=== PATIENT | female | born 1975 | race Hispanic/Latino ===

== ENCOUNTER 2017-12-01 08:47 | Emergency (ER) | payer MEDICARE ==
[~2017-12-01 08:47] MED LIST: ACET-2743 PO
[2017-12-01] MEDS ORDERED: ONDANSETRON HCL 4 MG/2 ML VIAL ONE ×2 (09:05→09:48)
[2017-12-01 09:15] LABS: EOSINOPHILS % (AUTO) 1.9 % (0.0-8.0); HEMATOCRIT 41.7 % (36-48); LYMPHOCYTES % (AUTO) 28.2 % (21.0-51.0); MEAN CORPUSCULAR HEMOGLOBIN 29.7 pg (27.0-33.0); MEAN CORPUSCULAR HGB CONC 34.5 g/dL (32.0-36.0); MEAN CORPUSCULAR VOLUME 86.3 fL (79-99); MONOCYTES % (AUTO) 5.2 % (3.0-13.0); NEUTROPHILS % (AUTO) 63.7 % (40.0-77.0); PLATELET COUNT (AUTO) 361 K/uL (130-400); RED BLOOD CELL COUNT(AUTO) 4.83 MIL/uL (4.00-5.50); WHITE BLOOD COUNT (AUTO) 9.3 K/uL (4.8-10.8)
[2017-12-01] MEDS ORDERED: SODIUM CHLORIDE 0.9% 1000ML 1,000 ML IV ONE (09:22)
[2017-12-01 09:24] LABS: POTASSIUM 3.6 mmol/L (3.5-5.1)
[2017-12-01 09:28] LABS: ALBUMIN 3.4 g/dL (3.5-5.0); BILIRUBIN,TOTAL 0.3 mg/dL (0.2-1.0); TOTAL PROTEIN, SERUM 7.8 g/dL (6.0-8.3)
[2017-12-01] MEDS ORDERED: KETOROLAC TROMETHAMINE 30MG/ML ONE (09:44)
[2017-12-01 10:12] LABS: APPEARANCE,URINE Clear (CLEAR); BILIRUBIN,URINE Negative (NEGATIVE); COLOR,URINE Yellow (YELLOW); GLUCOSE, URINE (UA) Negative (NEGATIVE); KETONES,URINE Trace mg/dL (NEGATIVE); LEUKOCYTE ESTERASE ,URINE Trace (NEGATIVE); NITRATE,URINE Negative (NEGATIVE); OCCULT BLOOD,URINE Negative (NEGATIVE); PROTEIN,URINE Negative (NEGATIVE); UROBILINOGEN,URINE 0.2 mg/dL (0.2-1.0)
[2017-12-01 10:20] LABS: HCG,QUAL RESULT NEGATIVE (NEGATIVE)
[2017-12-01 10:24] LABS: AMPHET/METH SCREEN,URINE NEGATIVE (NEGATIVE); BARBITURATE SCREEN, URINE NEGATIVE (NEGATIVE); BENZODIAZEPINES SCREEN,URINE NEGATIVE (NEGATIVE); CANNABINOID SCREEN,URINE NEGATIVE (NEGATIVE); COCAINE SCREEN,URINE NEGATIVE (NEGATIVE); OPIATE SCREEN,URINE NEGATIVE (NEGATIVE); PHENCYCLIDINE SCREEN,URINE NEGATIVE (NEGATIVE)
[2017-12-01 10:32] LABS: BACTERIA,URINE Few /HPF (None Seen); RBC,URINE 0-1 /HPF (0-1)
[2017-12-01 10:33] LABS: WBC,URINE 0-1 /HPF (0-1)
== END 2017-12-01 11:48 | disposition home or self-care (01) ==
LOC: EDH 08:47
DX: K52.9 Noninfective gastroenteritis and colitis, unspecified (principal); Z88.6 Allergy status to analgesic agent; Z90.49 Acquired absence of other specified parts of digestive tract; Z98.890 Other specified postprocedural states
CPT/HCPCS: 36415; 74176; 80053; 80305; 81001; 81025; 83690; 85025; 96361; 96374; 96375; 96376; 99285; J1885; J2405 ×2; J7030

== ENCOUNTER 2018-01-03 09:58 | Emergency (ER) | payer MEDICARE ==
[2018-01-03] MEDS ORDERED: DiphenhydrAMINE HCL 50 MG/ML VIAL ONE (10:43)
[2018-01-03] MEDS ORDERED: FAMOTIDINE/PF 20 MG/2 ML VIAL IV ONE (10:44)
[2018-01-03] MEDS ORDERED: SODIUM CHLORIDE 0.9% 1000ML 1,000 ML IV ONE (10:44)
[2018-01-03] MEDS ORDERED: PROMETHAZINE HCL 25 MG/ML 1ML AMPULE IM ONE (10:44)
[2018-01-03 11:15] LABS: BASOPHILS % (AUTO) 0.2 % (0.0-5.0); HEMATOCRIT 44.3 % (36-48); LYMPHOCYTES % (AUTO) 11.7 % (21.0-51.0); MEAN CORPUSCULAR HEMOGLOBIN 29.2 pg (27.0-33.0); MEAN CORPUSCULAR HGB CONC 33.4 g/dL (32.0-36.0); MEAN CORPUSCULAR VOLUME 87.5 fL (79-99); MONOCYTES % (AUTO) 3.7 % (3.0-13.0); NEUTROPHILS % (AUTO) 83.4 % (40.0-77.0); PLATELET COUNT (AUTO) 375 K/uL (130-400); RED BLOOD CELL COUNT(AUTO) 5.07 MIL/uL (4.00-5.50); WHITE BLOOD COUNT (AUTO) 11.5 K/uL (4.8-10.8)
[2018-01-03 11:22] LABS: APPEARANCE,URINE Clear (CLEAR); BILIRUBIN,URINE Negative (NEGATIVE); COLOR,URINE Yellow (YELLOW); GLUCOSE, URINE (UA) Negative (NEGATIVE); KETONES,URINE Negative (NEGATIVE); LEUKOCYTE ESTERASE ,URINE Negative (NEGATIVE); NITRATE,URINE Negative (NEGATIVE); OCCULT BLOOD,URINE Moderate (NEGATIVE); PROTEIN,URINE Negative (NEGATIVE); UROBILINOGEN,URINE 0.2 mg/dL (0.2-1.0)
[2018-01-03 11:27] LABS: CREATININE 0.9 mg/dL (0.5-1.5); POTASSIUM 4.2 mmol/L (3.5-5.1)
[2018-01-03 11:29] LABS: ALBUMIN 3.5 g/dL (3.5-5.0); BILIRUBIN,TOTAL 0.2 mg/dL (0.2-1.0); TOTAL PROTEIN, SERUM 7.8 g/dL (6.0-8.3)
[2018-01-03 11:31] LABS: AMPHET/METH SCREEN,URINE NEGATIVE (NEGATIVE); BARBITURATE SCREEN, URINE NEGATIVE (NEGATIVE); BENZODIAZEPINES SCREEN,URINE NEGATIVE (NEGATIVE); CANNABINOID SCREEN,URINE NEGATIVE (NEGATIVE); COCAINE SCREEN,URINE NEGATIVE (NEGATIVE); OPIATE SCREEN,URINE NEGATIVE (NEGATIVE); PHENCYCLIDINE SCREEN,URINE NEGATIVE (NEGATIVE)
[2018-01-03 11:33] LABS: BACTERIA,URINE Rare /HPF (None Seen); SQUAMOUS EPITHELIAL CELL,UR Rare /HPF (0-2); WBC,URINE 0-1 /HPF (0-1)
== END 2018-01-03 11:58 | disposition home or self-care (01) ==
LOC: EDH 09:58
DX: K52.89 Other specified noninfective gastroenteritis and colitis (principal); Z88.6 Allergy status to analgesic agent; Z90.49 Acquired absence of other specified parts of digestive tract; Z79.899 Other long term (current) drug therapy; Z98.890 Other specified postprocedural states
CPT/HCPCS: 36415; 80053; 80305; 81001; 83690; 85025; 96361; 96374; 96375; 99284; J1200; J2550; J3490; J7030; 96365

== ENCOUNTER 2018-12-15 12:59 | Emergency (ER) | payer MEDICARE ==
[2018-12-15 13:37] LABS: BASOPHILS % (AUTO) 0.4 % (0.0-5.0); EOSINOPHILS % (AUTO) 1.8 % (0.0-8.0); HEMATOCRIT 36.4 % (36-48); LYMPHOCYTES % (AUTO) 26.5 % (21.0-51.0); MEAN CORPUSCULAR HEMOGLOBIN 27.8 pg (27.0-33.0); MEAN CORPUSCULAR HGB CONC 33.2 g/dL (32.0-36.0); MEAN CORPUSCULAR VOLUME 83.9 fL (79-99); NEUTROPHILS % (AUTO) 65.3 % (40.0-77.0); PLATELET COUNT (AUTO) 372 K/uL (130-400); RED BLOOD CELL COUNT(AUTO) 4.34 MIL/uL (4.00-5.50); RED CELL DISTRIBUTION WIDTH 14.5 % (11.0-15.5); WHITE BLOOD COUNT (AUTO) 7.5 K/uL (4.8-10.8)
== END 2018-12-15 14:40 | disposition home or self-care (01) ==
LOC: EDH 12:59
DX: N93.8 Other specified abnormal uterine and vaginal bleeding (principal); Z88.5 Allergy status to narcotic agent
CPT/HCPCS: 36415; 81025; 85025

== ENCOUNTER 2019-04-14 14:54 | Emergency (ER) | payer MEDICARE ==
[2019-04-14 15:24] LABS: BASOPHILS % (AUTO) 0.2 % (0.0-5.0); EOSINOPHILS % (AUTO) 2.8 % (0.0-8.0); HEMATOCRIT 33.4 % (36-48); LYMPHOCYTES % (AUTO) 23.8 % (21.0-51.0); MEAN CORPUSCULAR HGB CONC 31.4 g/dL (32.0-36.0); MEAN CORPUSCULAR VOLUME 76.3 fL (79-99); NEUTROPHILS % (AUTO) 65.9 % (40.0-77.0); PLATELET COUNT (AUTO) 419 K/uL (130-400); RED BLOOD CELL COUNT(AUTO) 4.38 MIL/uL (4.00-5.50); RED CELL DISTRIBUTION WIDTH 17.2 % (11.0-15.5); WHITE BLOOD COUNT (AUTO) 9.3 K/uL (4.8-10.8)
[2019-04-14 15:41] LABS: INR 0.94 (0.85-1.15); PROTHROMBIN TIME 9.9 SEC (9.6-11.6)
[2019-04-14 15:42] LABS: CREATININE 0.9 mg/dL (0.5-1.5); POTASSIUM 3.8 mmol/L (3.5-5.1)
[2019-04-14 15:46] LABS: ALBUMIN 3.5 g/dL (3.5-5.0); BILIRUBIN,TOTAL 0.2 mg/dL (0.2-1.0); TOTAL PROTEIN, SERUM 7.5 g/dL (6.0-8.3)
[2019-04-14 16:37] LABS: APPEARANCE,URINE Cloudy (CLEAR); BILIRUBIN,URINE Negative (NEGATIVE); COLOR,URINE Red (YELLOW); GLUCOSE, URINE (UA) Negative (NEGATIVE); KETONES,URINE Negative (NEGATIVE); LEUKOCYTE ESTERASE ,URINE Small (NEGATIVE); NITRATE,URINE Negative (NEGATIVE); OCCULT BLOOD,URINE Large (NEGATIVE); PH,URINE 6.5 (5.0-8.0); PROTEIN,URINE POS 1+ mg/dL (NEGATIVE)
[2019-04-14 16:43] LABS: AMPHET/METH SCREEN,URINE NEGATIVE (NEGATIVE); BARBITURATE SCREEN, URINE NEGATIVE (NEGATIVE); BENZODIAZEPINES SCREEN,URINE NEGATIVE (NEGATIVE); CANNABINOID SCREEN,URINE NEGATIVE (NEGATIVE); COCAINE SCREEN,URINE NEGATIVE (NEGATIVE); OPIATE SCREEN,URINE NEGATIVE (NEGATIVE); PHENCYCLIDINE SCREEN,URINE NEGATIVE (NEGATIVE)
[2019-04-14 16:58] LABS: BACTERIA,URINE Few /HPF (None Seen); RBC,URINE Full Field /HPF (0-1); SQUAMOUS EPITHELIAL CELL,UR 0-2 /HPF (0-2)
[2019-04-14] MEDS ORDERED: SODIUM CHLORIDE 0.9% 1000ML 1,000 ML IV ONE (17:37)
[2019-04-14] MEDS ORDERED: LORAZEPAM 2 MG/ML 1 ML VIAL ONE (17:40)
== END 2019-04-14 18:22 | disposition home or self-care (01) ==
LOC: EDH 14:54
DX: F41.0 Panic disorder [episodic paroxysmal anxiety] (principal); R20.2 Paresthesia of skin; N93.8 Other specified abnormal uterine and vaginal bleeding; K04.7 Periapical abscess without sinus; K08.89 Other specified disorders of teeth and supporting structures; Z87.891 Personal history of nicotine dependence; Z88.6 Allergy status to analgesic agent
CPT/HCPCS: 36415; 70450; 71045; 80053; 80305; 81001; 82550; 82948; 83721; 84484; 85025; 85610; 85730; 93005; 96374; 99285; J2060; J7030

== ENCOUNTER 2019-09-02 05:16 | Emergency (ER) | payer OTHER, MEDICARE | END 2019-09-02 06:10 | disposition home or self-care (01) | LOC: EDH 05:16 | DX: F41.9 Anxiety disorder, unspecified (principal); Z98.890 Other specified postprocedural states; Z88.2 Allergy status to sulfonamides | CPT/HCPCS: 99281 ==

== ENCOUNTER 2020-07-10 09:09 | Emergency (ER) | payer OTHER, MEDICARE ==
[2020-07-10] MEDS ORDERED: LORAZEPAM 1 MG TABLET ONE (09:35)
[2020-07-10 09:37] LABS: BASOPHILS % (AUTO) 0.3 % (0.0-5.0); EOSINOPHILS % (AUTO) 2.1 % (0.0-8.0); HEMATOCRIT 41.2 % (36-48); LYMPHOCYTES % (AUTO) 21.2 % (21.0-51.0); MEAN CORPUSCULAR HEMOGLOBIN 27.5 pg (27.0-33.0); MEAN CORPUSCULAR VOLUME 83.4 fL (79-99); MONOCYTES % (AUTO) 5.3 % (3.0-13.0); NEUTROPHILS % (AUTO) 70.9 % (40.0-77.0); PLATELET COUNT (AUTO) 354 K/uL (130-400); RED BLOOD CELL COUNT(AUTO) 4.94 MIL/uL (4.00-5.50); RED CELL DISTRIBUTION WIDTH 14.6 % (11.0-15.5); WHITE BLOOD COUNT (AUTO) 8.7 K/uL (4.8-10.8)
[2020-07-10 09:43] LABS: POTASSIUM 3.9 mmol/L (3.5-5.1)
[2020-07-10 09:48] LABS: ALBUMIN 3.5 g/dL (3.5-5.0); BILIRUBIN,TOTAL 0.4 mg/dL (0.2-1.0); TOTAL PROTEIN, SERUM 7.2 g/dL (6.0-8.3)
[2020-07-10 10:39] LABS: APPEARANCE,URINE Clear (CLEAR); BILIRUBIN,URINE Negative (NEGATIVE); COLOR,URINE Yellow (YELLOW); GLUCOSE, URINE (UA) Negative (NEGATIVE); KETONES,URINE Negative (NEGATIVE); LEUKOCYTE ESTERASE ,URINE Trace (NEGATIVE); NITRATE,URINE Negative (NEGATIVE); OCCULT BLOOD,URINE Large (NEGATIVE); PROTEIN,URINE Negative (NEGATIVE); UROBILINOGEN,URINE 0.2 mg/dL (0.2-1.0)
[2020-07-10 10:41] LABS: HCG,QUAL RESULT NEGATIVE (NEGATIVE)
[2020-07-10 10:54] LABS: BACTERIA,URINE None Seen /HPF (None Seen); RBC,URINE 51-100 /HPF (0-1); WBC,URINE 0-1 /HPF (0-1)
[2020-07-10 10:55] LABS: MUCUS,URINE Few LPF (None Seen); TRANSITIONAL EPI CELLS,URINE Few /HPF (None Seen)
== END 2020-07-10 12:07 | disposition home or self-care (01) ==
LOC: EDH 09:09
DX: F41.1 Generalized anxiety disorder (principal); R00.0 Tachycardia, unspecified; R42 Dizziness and giddiness; Z88.6 Allergy status to analgesic agent; Z79.899 Other long term (current) drug therapy; Z98.890 Other specified postprocedural states
CPT/HCPCS: 36415; 80053; 81001; 81025; 84484; 85025; 85378; 93005

== ENCOUNTER 2021-06-12 10:43 | Emergency (ER) | payer OTHER, MEDICARE ==
[~2021-06-12] VITALS: Ht 172.7 cm; Wt 81.6 kg
[2021-06-12 11:06] LABS: BASOPHILS % (AUTO) 0.3 % (0.0-5.0); EOSINOPHILS % (AUTO) 1.8 % (0.0-8.0); HEMATOCRIT 36.7 % (36-48); LYMPHOCYTES % (AUTO) 29.6 % (21.0-51.0); MEAN CORPUSCULAR HEMOGLOBIN 24.5 pg (27.0-33.0); MEAN CORPUSCULAR HGB CONC 31.6 g/dL (32.0-36.0); MEAN CORPUSCULAR VOLUME 77.6 fL (79-99); MONOCYTES % (AUTO) 5.8 % (3.0-13.0); NEUTROPHILS % (AUTO) 62.1 % (40.0-77.0); PLATELET COUNT (AUTO) 379 K/uL (130-400); RED BLOOD CELL COUNT(AUTO) 4.73 MIL/uL (4.00-5.50); RED CELL DISTRIBUTION WIDTH 16.6 % (11.0-15.5); WHITE BLOOD COUNT (AUTO) 9.9 K/uL (4.8-10.8)
[2021-06-12 11:07] LABS: APPEARANCE,URINE CLEAR (CLEAR); BILIRUBIN,URINE NEGATIVE (NEGATIVE); COLOR,URINE YELLOW (YELLOW); GLUCOSE, URINE (UA) NEGATIVE (NEGATIVE); KETONES,URINE NEGATIVE (NEGATIVE); LEUKOCYTE ESTERASE ,URINE TRACE (NEGATIVE); NITRATE,URINE NEGATIVE (NEGATIVE); OCCULT BLOOD,URINE NEGATIVE (NEGATIVE); PROTEIN,URINE NEGATIVE (NEGATIVE); UROBILINOGEN,URINE 0.2 mg/dL (0.2-1.0)
[2021-06-12 11:55] LABS: CREATININE 0.9 mg/dL (0.5-1.5); POTASSIUM 3.8 mmol/L (3.5-5.1)
[2021-06-12 11:57] LABS: BACTERIA,URINE Rare /HPF (None Seen); RBC,URINE 0-1 /HPF (0-1); SQUAMOUS EPITHELIAL CELL,UR Few /HPF (0-2); WBC,URINE 0-1 /HPF (0-1)
[2021-06-12 11:59] LABS: ALBUMIN 3.4 g/dL (3.5-5.0); BILIRUBIN,TOTAL 0.3 mg/dL (0.2-1.0); TOTAL PROTEIN, SERUM 7.2 g/dL (6.0-8.3)
[2021-06-12 13:02] VITALS: BP 117/65
[2021-06-12] MEDS ORDERED: CYCL10TA16 PO (13:29)
[2021-06-12] MEDS ORDERED: NAPR500T6 PO (13:29)
== END 2021-06-12 13:38 | disposition home or self-care (01) ==
LOC: EDH 10:43
DX: R07.89 Other chest pain (principal); M54.2 Cervicalgia; F41.9 Anxiety disorder, unspecified; K21.9 Gastro-esophageal reflux disease without esophagitis; Z88.5 Allergy status to narcotic agent; Z79.899 Other long term (current) drug therapy
CPT/HCPCS: 36415; 71045; 80053; 81001; 84484; 85025; 93005

== ENCOUNTER 2021-09-21 12:42 | Emergency (ER) | payer OTHER, MEDICARE ==
[~2021-09-21] VITALS: Ht 162.6 cm; Wt 77.1 kg
[~2021-09-21 12:42] MED LIST changes: +CYCL10TA16 PO; +NAPR500T6 PO
[2021-09-21] MEDS ORDERED: LACTATED RINGERS 1000ML 1,000 ML IV ONE (13:00)
[2021-09-21] MEDS ORDERED: ASPIRIN 81MG CHEW TAB PO ONE (13:00)
[2021-09-21 13:09] LABS: BASOPHILS % (AUTO) 0.4 % (0.0-5.0); EOSINOPHILS % (AUTO) 2.2 % (0.0-8.0); HEMATOCRIT 33.7 % (36-48); LYMPHOCYTES % (AUTO) 36.6 % (21.0-51.0); MEAN CORPUSCULAR HEMOGLOBIN 24.8 pg (27.0-33.0); MEAN CORPUSCULAR HGB CONC 32.3 g/dL (32.0-36.0); MEAN CORPUSCULAR VOLUME 76.6 fL (79-99); MONOCYTES % (AUTO) 5.6 % (3.0-13.0); PLATELET COUNT (AUTO) 375 K/uL (130-400); RED CELL DISTRIBUTION WIDTH 16.9 % (11.0-15.5); WHITE BLOOD COUNT (AUTO) 8.3 K/uL (4.8-10.8)
[2021-09-21 13:18] LABS: CREATININE 0.8 mg/dL (0.5-1.5)
[2021-09-21 13:23] LABS: ALBUMIN 3.3 g/dL (3.5-5.0); TOTAL PROTEIN, SERUM 6.6 g/dL (6.0-8.3)
[2021-09-21 13:55] LABS: AMPHET/METH SCREEN,URINE NEGATIVE (NEGATIVE); BARBITURATE SCREEN, URINE NEGATIVE (NEGATIVE); BENZODIAZEPINES SCREEN,URINE NEGATIVE (NEGATIVE); CANNABINOID SCREEN,URINE NEGATIVE (NEGATIVE); COCAINE SCREEN,URINE NEGATIVE (NEGATIVE); PHENCYCLIDINE SCREEN,URINE NEGATIVE (NEGATIVE)
[2021-09-21 14:55] LABS: APPEARANCE,URINE CLEAR (CLEAR); BILIRUBIN,URINE NEGATIVE (NEGATIVE); COLOR,URINE YELLOW (YELLOW); GLUCOSE, URINE (UA) NEGATIVE (NEGATIVE); KETONES,URINE NEGATIVE (NEGATIVE); LEUKOCYTE ESTERASE ,URINE TRACE (NEGATIVE); NITRATE,URINE NEGATIVE (NEGATIVE); OCCULT BLOOD,URINE NEGATIVE (NEGATIVE); PH,URINE 7.5 (5.0-8.0); PROTEIN,URINE NEGATIVE (NEGATIVE); UROBILINOGEN,URINE 0.2 mg/dL (0.2-1.0)
[2021-09-21 15:02] LABS: BACTERIA,URINE Few /HPF (None Seen); MUCUS,URINE Few LPF (None Seen); RBC,URINE 0-1 /HPF (0-1); SQUAMOUS EPITHELIAL CELL,UR Moderate /HPF (0-2)
[2021-09-21] MEDS ORDERED: NAPR375T6 PO (15:08)
[2021-09-21] MEDS ORDERED: CEPH500B PO (15:08)
[2021-09-21 15:17] VITALS: BP 121/74
[2021-09-23 13:12] LABS: OPIATES SCREEN URINE Negative ng/mL (Cutoff=300)
== END 2021-09-21 15:16 | disposition home or self-care (01) ==
LOC: EDH 12:42
DX: M94.0 Chondrocostal junction syndrome [Tietze] (principal); N39.0 Urinary tract infection, site not specified; E86.0 Dehydration; K21.9 Gastro-esophageal reflux disease without esophagitis; Z79.1 Long term (current) use of non-steroidal anti-inflammatories (NSAID); Z88.5 Allergy status to narcotic agent
CPT/HCPCS: 99285; 96360; 71045; 84484; 80053; 80305; 85025; 81001; 81025; 36415; 93005; J7030

== ENCOUNTER 2022-03-26 13:28 | Emergency (ER) | payer OTHER, MEDICARE ==
[~2022-03-26] VITALS: Ht 165.1 cm; Wt 81.6 kg
[~2022-03-26 13:28] MED LIST changes: +CEPH500B PO; +NAPR375T6 PO
[2022-03-26 13:34] VITALS: BP 142/87
[2022-03-26 14:04] LABS: BASOPHILS % (AUTO) 0.3 % (0.0-5.0); EOSINOPHILS % (AUTO) 1.4 % (0.0-8.0); HEMATOCRIT 40.3 % (36-48); LYMPHOCYTES % (AUTO) 27.3 % (21.0-51.0); MEAN CORPUSCULAR HEMOGLOBIN 24.3 pg (27.0-33.0); MEAN CORPUSCULAR VOLUME 75.9 fL (79-99); MONOCYTES % (AUTO) 6.4 % (3.0-13.0); NEUTROPHILS % (AUTO) 64.4 % (40.0-77.0); PLATELET COUNT (AUTO) 446 K/uL (130-400); RED BLOOD CELL COUNT(AUTO) 5.31 MIL/uL (4.00-5.50); RED CELL DISTRIBUTION WIDTH 17.3 % (11.0-15.5); WHITE BLOOD COUNT (AUTO) 10.2 K/uL (4.8-10.8)
[2022-03-26 14:05] LABS: APPEARANCE,URINE CLEAR (CLEAR); BILIRUBIN,URINE NEGATIVE (NEGATIVE); COLOR,URINE COLORLESS (YELLOW); GLUCOSE, URINE (UA) NEGATIVE (NEGATIVE); KETONES,URINE NEGATIVE (NEGATIVE); LEUKOCYTE ESTERASE ,URINE NEGATIVE Leu/uL (NEGATIVE); NITRATE,URINE NEGATIVE (NEGATIVE); OCCULT BLOOD,URINE NEGATIVE (NEGATIVE); PH,URINE 5.5 (5.0-8.0); PROTEIN,URINE NEGATIVE (NEGATIVE); UROBILINOGEN,URINE 0.2 mg/dL (0.2-1.0)
[2022-03-26 14:11] LABS: HCG,QUALITATIVE URINE NEGATIVE (NEGATIVE)
[2022-03-26 14:25] LABS: CREATININE 0.9 mg/dL (0.5-1.5); POTASSIUM 3.9 mmol/L (3.5-5.1)
[2022-03-26 14:31] LABS: MAGNESIUM 1.9 mg/dL (1.80-2.40); TOTAL PROTEIN, SERUM 8.1 g/dL (6.0-8.3)
== END 2022-03-26 15:46 | disposition left against medical advice (07) ==
LOC: EDH 13:28
DX: R07.89 Other chest pain (principal); Z53.21 Procedure and treatment not carried out due to patient leaving prior to being seen by health care provider
CPT/HCPCS: 36415; 80053; 81003; 81025; 83735; 84484; 85025; 93005

== ENCOUNTER 2022-09-13 12:25 | Emergency (ER) | payer OTHER, MEDICARE ==
[~2022-09-13] VITALS: Ht 162.6 cm; Wt 77.6 kg
[2022-09-13 12:38] VITALS: BP 141/86; PULSE 93; RESP 16
[2022-09-13 13:08] LABS: BASOPHILS % (AUTO) 0.3 % (0.0-5.0); EOSINOPHILS % (AUTO) 1.5 % (0.0-8.0); HEMATOCRIT 44.2 % (36-48); LYMPHOCYTES % (AUTO) 22.2 % (21.0-51.0); MEAN CORPUSCULAR HEMOGLOBIN 28.9 pg (27.0-33.0); MEAN CORPUSCULAR HGB CONC 34.2 g/dL (32.0-36.0); MEAN CORPUSCULAR VOLUME 84.7 fL (79-99); MONOCYTES % (AUTO) 5.1 % (3.0-13.0); NEUTROPHILS % (AUTO) 70.4 % (40.0-77.0); PLATELET COUNT (AUTO) 354 K/uL (130-400); RED BLOOD CELL COUNT(AUTO) 5.22 MIL/uL (4.00-5.50); RED CELL DISTRIBUTION WIDTH 16.1 % (11.0-15.5); WHITE BLOOD COUNT (AUTO) 14.3 K/uL (4.8-10.8)
[2022-09-13 13:17] LABS: CREATININE 0.9 mg/dL (0.5-1.5)
[2022-09-13 13:22] LABS: ALBUMIN 3.6 g/dL (3.5-5.0); MAGNESIUM 1.8 mg/dL (1.80-2.40); TOTAL PROTEIN, SERUM 7.1 g/dL (6.0-8.3)
== END 2022-09-13 16:48 | disposition left against medical advice (07) ==
LOC: EDH 12:25
DX: R07.89 Other chest pain (principal); F41.9 Anxiety disorder, unspecified; K21.9 Gastro-esophageal reflux disease without esophagitis; Z88.5 Allergy status to narcotic agent; Z90.49 Acquired absence of other specified parts of digestive tract
CPT/HCPCS: 36415; 71045; 80053; 83735; 84484; 85025; 93005

== ENCOUNTER 2022-12-14 07:41 | Emergency (ER) | payer OTHER, MEDICARE ==
[~2022-12-14] VITALS: Ht 162.6 cm; Wt 77.1 kg
[2022-12-14 08:13] LABS: BASOPHILS # (AUTO) 0.03 K/uL (0.00-0.20); BASOPHILS % (AUTO) 0.4 % (0.0-5.0); EOSINOPHILS # (AUTO) 0.17 K/uL (0.00-0.70); EOSINOPHILS % (AUTO) 2.1 % (0.0-8.0); HEMATOCRIT 41.6 % (36-48); IMMATURE GRANULOCYTE ABSOLUTE 0.03 K/uL (0-1); LYMPHOCYTES # (AUTO) 2.1 K/uL (1.0-4.8); LYMPHOCYTES % (AUTO) 25.6 % (21.0-51.0); MEAN CORPUSCULAR HEMOGLOBIN 29.6 pg (27.0-33.0); MEAN CORPUSCULAR HGB CONC 33.7 g/dL (32.0-36.0); MEAN CORPUSCULAR VOLUME 87.9 fL (79-99); MONOCYTES # (AUTO) 0.7 K/uL (0.1-1.0); MONOCYTES % (AUTO) 8.6 % (3.0-13.0); NEUTROPHILS % (AUTO) 62.9 % (40.0-77.0); PLATELET COUNT (AUTO) 328 K/uL (130-400); RED BLOOD CELL COUNT(AUTO) 4.73 MIL/uL (4.00-5.50); RED CELL DISTRIBUTION WIDTH 13.9 % (11.0-15.5)
[2022-12-14 08:22] LABS: HCG,QUALITATIVE URINE NEGATIVE (NEGATIVE)
[2022-12-14 08:23] LABS: APPEARANCE,URINE CLEAR (CLEAR); BILIRUBIN,URINE NEGATIVE (NEGATIVE); COLOR,URINE YELLOW (YELLOW); GLUCOSE, URINE (UA) NEGATIVE (NEGATIVE); KETONES,URINE NEGATIVE (NEGATIVE); LEUKOCYTE ESTERASE ,URINE NEGATIVE Leu/uL (NEGATIVE); NITRATE,URINE NEGATIVE (NEGATIVE); OCCULT BLOOD,URINE NEGATIVE (NEGATIVE); PROTEIN,URINE 10 mg/dL (NEGATIVE)
[2022-12-14 08:25] LABS: ADD UA MICROSCOPIC YES
[2022-12-14 08:29] LABS: MUCUS,URINE RARE LPF (None Seen); SQUAMOUS EPITHELIAL CELL,UR FEW /HPF (0-2)
[2022-12-14 08:32] LABS: ALBUMIN 3.5 g/dL (3.5-5.0); BILIRUBIN,TOTAL 0.5 mg/dL (0.2-1.0); CREATININE 0.9 mg/dL (0.5-1.5); POTASSIUM 3.5 mmol/L (3.5-5.1)
[2022-12-14] MEDS ORDERED: HYDROXYZINE 25 MG TABLET PO ONE (09:00)
[2022-12-14 09:30] VITALS: BP 124/71; PULSE 77; RESP 16; O2SAT 100
[2022-12-14] MEDS ORDERED: HYDR50CA50 PO (09:31)
== END 2022-12-14 09:37 | disposition home or self-care (01) ==
LOC: EDH 07:41
DX: F41.9 Anxiety disorder, unspecified (principal); K21.9 Gastro-esophageal reflux disease without esophagitis; Z88.5 Allergy status to narcotic agent; Z90.49 Acquired absence of other specified parts of digestive tract
CPT/HCPCS: 36415; 71045; 74021; 80053; 81001; 81025; 83690; 84484; 85025; 93005

== ENCOUNTER 2023-02-10 07:57 | Emergency (ER) | payer OTHER, MEDICARE ==
[~2023-02-10] VITALS: Ht 162.6 cm; Wt 81.6 kg
[~2023-02-10 07:57] MED LIST changes: +HYDR50CA50 PO
[2023-02-10 08:23] LABS: HEMATOCRIT 42.3 % (36-48); MEAN CORPUSCULAR HEMOGLOBIN 29.4 pg (27.0-33.0); MEAN CORPUSCULAR HGB CONC 33.3 g/dL (32.0-36.0); MEAN CORPUSCULAR VOLUME 88.3 fL (79-99); RED BLOOD CELL COUNT(AUTO) 4.79 MIL/uL (4.00-5.50); RED CELL DISTRIBUTION WIDTH 14.2 % (11.0-15.5); WHITE BLOOD COUNT (AUTO) 8.3 K/uL (4.8-10.8)
[2023-02-10 08:42] LABS: ALBUMIN 3.4 g/dL (3.5-5.0); BILIRUBIN,TOTAL 0.3 mg/dL (0.2-1.0); CREATININE 0.8 mg/dL (0.5-1.5); POTASSIUM 3.7 mmol/L (3.5-5.1); TOTAL PROTEIN, SERUM 7.3 g/dL (6.0-8.3)
[2023-02-10 08:50] VITALS: BP 142/85; PULSE 69; RESP 18; O2SAT 97
[2023-02-10 09:03] LABS: APPEARANCE,URINE CLEAR (CLEAR); BILIRUBIN,URINE NEGATIVE (NEGATIVE); COLOR,URINE COLORLESS (YELLOW); GLUCOSE, URINE (UA) NEGATIVE (NEGATIVE); KETONES,URINE NEGATIVE (NEGATIVE); LEUKOCYTE ESTERASE ,URINE NEGATIVE Leu/uL (NEGATIVE); NITRATE,URINE NEGATIVE (NEGATIVE); OCCULT BLOOD,URINE NEGATIVE (NEGATIVE); PROTEIN,URINE NEGATIVE (NEGATIVE); UROBILINOGEN,URINE 0.2 mg/dL (0.2-1.0)
[2023-02-10 09:05] LABS: ADD UA MICROSCOPIC NO
[2023-02-10] MEDS ORDERED: ALBU90AE2 IH (09:41)
[2023-02-10] MEDS ORDERED: BENZ200C53 PO (09:41)
[2023-02-10] MEDS ORDERED: FLUT16H NASAL (09:41)
[2023-02-10] MEDS ORDERED: HYDR-3421 PO (09:41)
[2023-02-10] MEDS ORDERED: CETI10TA57 PO (09:41)
== END 2023-02-10 09:52 | disposition home or self-care (01) ==
LOC: EDH 07:57
DX: M94.0 Chondrocostal junction syndrome [Tietze] (principal); F41.9 Anxiety disorder, unspecified; J40 Bronchitis, not specified as acute or chronic; K21.9 Gastro-esophageal reflux disease without esophagitis; Z88.5 Allergy status to narcotic agent; Z90.49 Acquired absence of other specified parts of digestive tract
CPT/HCPCS: 36415; 71045; 80053; 81003; 84484; 85027; 93005

== ENCOUNTER 2023-03-16 06:31 | Emergency (ER) | payer OTHER, MEDICARE ==
[~2023-03-16] VITALS: Ht 165.1 cm; Wt 89.4 kg
[~2023-03-16 06:31] MED LIST changes: +ALBU90AE2 IH; +BENZ200C53 PO; +CETI10TA57 PO; +FLUT16H NASAL; +HYDR-3421 PO
[2023-03-16 06:59] LABS: APPEARANCE,URINE CLEAR (CLEAR); BILIRUBIN,URINE NEGATIVE (NEGATIVE); COLOR,URINE YELLOW (YELLOW); GLUCOSE, URINE (UA) NEGATIVE (NEGATIVE); KETONES,URINE NEGATIVE (NEGATIVE); LEUKOCYTE ESTERASE ,URINE 250 Leu/uL (NEGATIVE); NITRATE,URINE NEGATIVE (NEGATIVE); OCCULT BLOOD,URINE NEGATIVE (NEGATIVE); PH,URINE 5.5 (5.0-8.0); PROTEIN,URINE NEGATIVE (NEGATIVE); UROBILINOGEN,URINE 0.2 mg/dL (0.2-1.0)
[2023-03-16 07:08] LABS: BASOPHILS # (AUTO) 0.02 K/uL (0.00-0.20); BASOPHILS % (AUTO) 0.2 % (0.0-5.0); EOSINOPHILS # (AUTO) 0.22 K/uL (0.00-0.70); EOSINOPHILS % (AUTO) 2.5 % (0.0-8.0); HEMATOCRIT 40.1 % (36-48); IMMATURE GRANULOCYTE ABSOLUTE 0.03 K/uL (0-1); LYMPHOCYTES # (AUTO) 2.9 K/uL (1.0-4.8); LYMPHOCYTES % (AUTO) 32.8 % (21.0-51.0); MEAN CORPUSCULAR HEMOGLOBIN 29.5 pg (27.0-33.0); MEAN CORPUSCULAR HGB CONC 33.9 g/dL (32.0-36.0); MONOCYTES # (AUTO) 0.6 K/uL (0.1-1.0); MONOCYTES % (AUTO) 6.9 % (3.0-13.0); NEUTROPHILS # (AUTO) 5.1 K/uL (1.8-7.7); NEUTROPHILS % (AUTO) 57.3 % (40.0-77.0); PLATELET COUNT (AUTO) 336 K/uL (130-400); RED BLOOD CELL COUNT(AUTO) 4.61 MIL/uL (4.00-5.50); RED CELL DISTRIBUTION WIDTH 14.7 % (11.0-15.5); WHITE BLOOD COUNT (AUTO) 8.8 K/uL (4.8-10.8)
[2023-03-16 07:15] LABS: ADD UA MICROSCOPIC YES
[2023-03-16 07:25] LABS: ALBUMIN 3.3 g/dL (3.5-5.0); BILIRUBIN,TOTAL 0.4 mg/dL (0.2-1.0); CREATININE 0.9 mg/dL (0.5-1.5); POTASSIUM 3.7 mmol/L (3.5-5.1); TOTAL PROTEIN, SERUM 6.8 g/dL (6.0-8.3)
[2023-03-16] MEDS ORDERED: ONDANSETRON 4MG INJ IVP ONE (07:30)
[2023-03-16] MEDS ORDERED: KETOROLAC 15MG/ML VIAL (15MG/ML) IV ONE (07:30)
[2023-03-16 08:15] LABS: B-TYPE NATRIURETIC PEPTIDE 7 pg/mL (0-100)
[2023-03-16 08:21] LABS: MUCUS,URINE RARE LPF (None Seen); SQUAMOUS EPITHELIAL CELL,UR MOD /HPF (0-2)
[2023-03-16] MEDS ORDERED: ONDA4TAB10 PO (08:46)
[2023-03-16] MEDS ORDERED: CEPH500T PO (08:46)
[2023-03-16] MEDS ORDERED: CIPR7.5D7 OT (08:46)
[2023-03-16 09:23] VITALS: BP 123/68; PULSE 77; RESP 13; O2SAT 100
== END 2023-03-16 09:37 | disposition home or self-care (01) ==
LOC: EDH 06:31
DX: H60.93 Unspecified otitis externa, bilateral (principal); R11.0 Nausea; N39.0 Urinary tract infection, site not specified; F41.9 Anxiety disorder, unspecified; Z88.5 Allergy status to narcotic agent; Z90.49 Acquired absence of other specified parts of digestive tract
CPT/HCPCS: 99284; 96374; 84484; 80053; 83880; 85025; 85378; 87088; 81001; 36415; 93005; J2405

== ENCOUNTER 2023-07-25 20:33 | Emergency (ER) | payer OTHER, MEDICARE ==
[~2023-07-25] VITALS: Ht 162.6 cm; Wt 93.9 kg
[~2023-07-25 20:33] MED LIST changes: -ALBU90AE2 IH; +ALBU90AE3 IH; +CEPH500T PO; +CIPR7.5D7 OT; +ONDA-243 PO
[2023-07-25] MEDS: LACTATED RINGERS 1000ML 1,000 ML IV ONE (21:00)
[2023-07-25] MEDS: LIDOCAINE HCL 2% VISCOUS 15 ML UDCUP PO ONE (21:00)
[2023-07-25] MEDS: PANTOPRAZOLE 40 MG/VIAL IVP ONE (21:00)
[2023-07-25] MEDS: MAG/ALUM/SIMETH 30 ML UDCUP PO ONE (21:00)
[2023-07-25] MEDS: ONDANSETRON 4MG INJ IVP ONE (21:00)
[2023-07-25 21:01] LABS: BASOPHILS # (AUTO) 0.03 K/uL (0.00-0.20); BASOPHILS % (AUTO) 0.3 % (0.0-5.0); EOSINOPHILS # (AUTO) 0.18 K/uL (0.00-0.70); EOSINOPHILS % (AUTO) 1.7 % (0.0-8.0); IMMATURE GRANULOCYTE ABSOLUTE 0.03 K/uL (0-1); LYMPHOCYTES # (AUTO) 4.1 K/uL (1.0-4.8); LYMPHOCYTES % (AUTO) 39.1 % (21.0-51.0); MEAN CORPUSCULAR HEMOGLOBIN 28.3 pg (27.0-33.0); MEAN CORPUSCULAR HGB CONC 34.3 g/dL (32.0-36.0); MEAN CORPUSCULAR VOLUME 82.4 fL (79-99); MONOCYTES # (AUTO) 0.6 K/uL (0.1-1.0); MONOCYTES % (AUTO) 5.7 % (3.0-13.0); NEUTROPHILS # (AUTO) 5.5 K/uL (1.8-7.7); NEUTROPHILS % (AUTO) 52.9 % (40.0-77.0); PLATELET COUNT (AUTO) 374 K/uL (130-400); RED BLOOD CELL COUNT(AUTO) 4.49 MIL/uL (4.00-5.50); WHITE BLOOD COUNT (AUTO) 10.4 K/uL (4.8-10.8)
[2023-07-25 21:10] LABS: CREATININE 0.9 mg/dL (0.5-1.0); POTASSIUM 3.8 mmol/L (3.5-5.1)
[2023-07-25 21:50] LABS: ADD UA MICROSCOPIC NO; APPEARANCE,URINE CLEAR (CLEAR); BILIRUBIN,URINE NEGATIVE (NEGATIVE); COLOR,URINE YELLOW (YELLOW); GLUCOSE, URINE (UA) NEGATIVE (NEGATIVE); KETONES,URINE NEGATIVE (NEGATIVE); LEUKOCYTE ESTERASE ,URINE NEGATIVE Leu/uL (NEGATIVE); NITRATE,URINE NEGATIVE (NEGATIVE); OCCULT BLOOD,URINE NEGATIVE (NEGATIVE); PROTEIN,URINE NEGATIVE (NEGATIVE); UROBILINOGEN,URINE 0.2 mg/dL (0.2-1.0)
[2023-07-25 21:53] VITALS: BP 120/66; PULSE 88; RESP 18; O2SAT 99
[2023-07-25] MEDS ORDERED: PANT40TA55 PO (22:34)
== END 2023-07-25 22:56 | disposition home or self-care (01) ==
LOC: EDH 20:33
DX: K21.9 Gastro-esophageal reflux disease without esophagitis (principal); Z79.899 Other long term (current) drug therapy; Z98.890 Other specified postprocedural states; Z90.49 Acquired absence of other specified parts of digestive tract; Z88.5 Allergy status to narcotic agent
CPT/HCPCS: 99284; 96374; 96375; 82550; 80048; 83690; 85025; 81003; 36415; 93005; J7120; J2405; C9113

== ENCOUNTER 2023-08-18 16:40 | Emergency (ER) | payer OTHER, MEDICARE ==
[~2023-08-18] VITALS: Ht 162.6 cm; Wt 81.6 kg
[~2023-08-18 16:40] MED LIST changes: +PANT40TA55 PO
[2023-08-18] MEDS: FLUORESCEIN SODIUM 1 STRIP STRIP OP SCH (17:35)
[2023-08-18] MEDS: TETRACAINE HCL 0.5% 4 ML OPHTH SOLN OP SCH (17:35)
[2023-08-18] MEDS: FLUORESCEIN SODIUM 1 STRIP STRIP ONE (17:36)
[2023-08-18] MEDS: TETRACAINE HCL 0.5% 4 ML OPHTH SOLN ONE (17:36)
[2023-08-18] MEDS ORDERED: ERYT1OIN7 OP (18:04)
[2023-08-18 18:06] VITALS: BP 121/78; PULSE 95; RESP 18; O2SAT 97
== END 2023-08-18 18:09 | disposition home or self-care (01) ==
LOC: EDH 16:40
DX: H11.32 Conjunctival hemorrhage, left eye (principal); K21.9 Gastro-esophageal reflux disease without esophagitis; Z79.899 Other long term (current) drug therapy; Z90.49 Acquired absence of other specified parts of digestive tract; Z98.890 Other specified postprocedural states; Z88.5 Allergy status to narcotic agent; Z88.8 Allergy status to other drugs, medicaments and biological substances

== ENCOUNTER 2023-09-08 09:20 | Emergency (ER) | payer OTHER, MEDICARE ==
[~2023-09-08] VITALS: Ht 162.6 cm; Wt 88.5 kg
[~2023-09-08 09:20] MED LIST changes: +ERYT1OIN7 OP
[2023-09-08 09:23] VITALS: BP 147/94; PULSE 66; RESP 16
[2023-09-08 10:09] LABS: BASOPHILS # (AUTO) 0.04 K/uL (0.00-0.20); BASOPHILS % (AUTO) 0.5 % (0.0-5.0); EOSINOPHILS # (AUTO) 0.19 K/uL (0.00-0.70); EOSINOPHILS % (AUTO) 2.3 % (0.0-8.0); HEMATOCRIT 36.4 % (36-48); IMMATURE GRANULOCYTE ABSOLUTE 0.04 K/uL (0-1); LYMPHOCYTES # (AUTO) 2.9 K/uL (1.0-4.8); LYMPHOCYTES % (AUTO) 34.4 % (21.0-51.0); MEAN CORPUSCULAR HEMOGLOBIN 26.3 pg (27.0-33.0); MEAN CORPUSCULAR HGB CONC 32.4 g/dL (32.0-36.0); MEAN CORPUSCULAR VOLUME 81.3 fL (79-99); MONOCYTES # (AUTO) 0.5 K/uL (0.1-1.0); MONOCYTES % (AUTO) 5.8 % (3.0-13.0); NEUTROPHILS # (AUTO) 4.7 K/uL (1.8-7.7); NEUTROPHILS % (AUTO) 56.5 % (40.0-77.0); PLATELET COUNT (AUTO) 408 K/uL (130-400); RED BLOOD CELL COUNT(AUTO) 4.48 MIL/uL (4.00-5.50); RED CELL DISTRIBUTION WIDTH 15.3 % (11.0-15.5); WHITE BLOOD COUNT (AUTO) 8.3 K/uL (4.8-10.8)
[2023-09-08 10:20] LABS: CREATININE 0.8 mg/dL (0.5-1.0); POTASSIUM 4.8 mmol/L (3.5-5.1)
[2023-09-08] MEDS ORDERED: LORAZEPAM 1 MG TABLET PO ONE (10:30)
[2023-09-08 10:46] LABS: ADD UA MICROSCOPIC NO; APPEARANCE,URINE CLEAR (CLEAR); BILIRUBIN,URINE NEGATIVE (NEGATIVE); COLOR,URINE COLORLESS (YELLOW); GLUCOSE, URINE (UA) NEGATIVE (NEGATIVE); KETONES,URINE NEGATIVE (NEGATIVE); LEUKOCYTE ESTERASE ,URINE NEGATIVE Leu/uL (NEGATIVE); NITRATE,URINE NEGATIVE (NEGATIVE); OCCULT BLOOD,URINE NEGATIVE (NEGATIVE); PH,URINE 5.5 (5.0-8.0); PROTEIN,URINE NEGATIVE (NEGATIVE); UROBILINOGEN,URINE 0.2 mg/dL (0.2-1.0)
[2023-09-08 10:51] LABS: AMPHET/METH SCREEN,URINE NEGATIVE (NEGATIVE); BARBITURATE SCREEN, URINE NEGATIVE (NEGATIVE); BENZODIAZEPINES SCREEN,URINE NEGATIVE (NEGATIVE); CANNABINOID SCREEN,URINE NEGATIVE (NEGATIVE); COCAINE SCREEN,URINE NEGATIVE (NEGATIVE); OPIATE SCREEN,URINE NEGATIVE (NEGATIVE); PHENCYCLIDINE SCREEN,URINE NEGATIVE (NEGATIVE)
== END 2023-09-08 11:33 | disposition left against medical advice (07) ==
LOC: EDH 09:20
DX: R20.2 Paresthesia of skin (principal); F41.9 Anxiety disorder, unspecified; R06.4 Hyperventilation; F32.A Depression, unspecified; Z88.6 Allergy status to analgesic agent; Z88.5 Allergy status to narcotic agent; Z79.2 Long term (current) use of antibiotics; Z79.899 Other long term (current) drug therapy; Z90.49 Acquired absence of other specified parts of digestive tract; Z98.890 Other specified postprocedural states
CPT/HCPCS: 36415; 80048; 80305; 81003; 81025; 85025; 93005

== ENCOUNTER → 2023-10-11 | Emergency (ER) | payer OTHER, MEDICARE | LOC: EDH 22:34 | DX: F41.9 Anxiety disorder, unspecified (principal); R07.89 Other chest pain; Z53.21 Procedure and treatment not carried out due to patient leaving prior to being seen by health care provider | CPT/HCPCS: 93005 ==

== ENCOUNTER 2024-01-27 08:17 | Emergency (ER) | payer OTHER, MEDICARE ==
[~2024-01-27] VITALS: Ht 162.6 cm; Wt 80.7 kg
[~2024-01-27 08:17] MED LIST changes: +NAPR-1505 PO; +NAPR-1506 PO; -NAPR375T6 PO; -NAPR500T6 PO
[2024-01-27] MEDS: ondanSETRON 4MG INJ IVP ONE (08:44)
[2024-01-27] MEDS: LACTATED RINGERS 1000ML 1,000 ML IV ONE (08:44)
[2024-01-27 08:53] LABS: BASOPHILS # (AUTO) 0.03 K/uL (0.00-0.20); BASOPHILS % (AUTO) 0.4 % (0.0-5.0); EOSINOPHILS # (AUTO) 0.22 K/uL (0.00-0.70); EOSINOPHILS % (AUTO) 2.6 % (0.0-8.0); HEMATOCRIT 38.8 % (36-48); IMMATURE GRANULOCYTE ABSOLUTE 0.03 K/uL (0-1); LYMPHOCYTES # (AUTO) 2.5 K/uL (1.0-4.8); LYMPHOCYTES % (AUTO) 29.2 % (21.0-51.0); MEAN CORPUSCULAR HEMOGLOBIN 25.3 pg (27.0-33.0); MEAN CORPUSCULAR HGB CONC 31.7 g/dL (32.0-36.0); MEAN CORPUSCULAR VOLUME 79.8 fL (79-99); MONOCYTES # (AUTO) 0.4 K/uL (0.1-1.0); NEUTROPHILS # (AUTO) 5.3 K/uL (1.8-7.7); NEUTROPHILS % (AUTO) 62.4 % (40.0-77.0); PLATELET COUNT (AUTO) 355 K/uL (130-400); RED BLOOD CELL COUNT(AUTO) 4.86 MIL/uL (4.00-5.50); RED CELL DISTRIBUTION WIDTH 17.1 % (11.0-15.5); WHITE BLOOD COUNT (AUTO) 8.4 K/uL (4.8-10.8)
[2024-01-27 09:05] LABS: APPEARANCE,URINE CLOUDY (CLEAR); BILIRUBIN,URINE NEGATIVE (NEGATIVE); COLOR,URINE LIGHT-ORANGE (YELLOW); GLUCOSE, URINE (UA) NEGATIVE (NEGATIVE); KETONES,URINE NEGATIVE (NEGATIVE); LEUKOCYTE ESTERASE ,URINE NEGATIVE Leu/uL (NEGATIVE); NITRATE,URINE NEGATIVE (NEGATIVE); OCCULT BLOOD,URINE LARGE (NEGATIVE); PH,URINE 6.5 (5.0-8.0); PROTEIN,URINE 10 mg/dL (NEGATIVE); UROBILINOGEN,URINE 0.2 mg/dL (0.2-1.0)
[2024-01-27 09:07] LABS: ADD UA MICROSCOPIC YES; HCG,QUALITATIVE URINE NEGATIVE (NEGATIVE)
[2024-01-27 09:20] LABS: CREATININE 0.8 mg/dL (0.5-1.0); POTASSIUM 3.9 mmol/L (3.5-5.1)
[2024-01-27 09:21] LABS: MUCUS,URINE RARE LPF (None Seen); RBC,URINE TNTC /HPF (0-1); SQUAMOUS EPITHELIAL CELL,UR RARE /HPF (0-2); WBC,URINE 0-1 /HPF (0-1)
[2024-01-27 09:25] LABS: ALBUMIN 3.5 g/dL (3.5-5.0); BILIRUBIN,TOTAL 0.5 mg/dL (0.2-1.0); TOTAL PROTEIN, SERUM 7.1 g/dL (6.0-8.3)
--- NOTE | 2024-01-27 10:06 | ERN ---
ED Note History of Present Illness Stated Complaint: VOMITING/ HEADACHE Chief Complaint: Nausea,Vomiting,Diarrhea Time Seen by MD: 08:27 Dictation: This 48-year-old female with a history of allergies and gastritis presents in the emergency department with a chief complaint of nausea and bilious emesis with multiple episodes of emesis this morning. She woke up feeling fine in the symptoms started shortly after she got up. There was no associated fever, diarrhea, and no abdominal pain. She had some chills. She is not aware of any bad food that she may have eaten and no one else is sick. She does have congestion but states that it is consistent with her chronic allergies. She has not incidental complaint of pain in the dorsal aspect of her left wrist and forearm without redness or swelling. It has been going on for about a month but she has been canceled from her PCPs office twice. That pain is exacerbated by movement she is concerned about possible carpal tunnel. The patient does not smoke, drink or use recreational drugs. She has had cholecystectomy and . She takes omeprazole and Tylenol. She lives alone Allergies: Coded Allergies: ketorolac (Unverified Allergy, Mild, TINGLING TO FACE, 03/16/23) codeine (Verified Allergy, Unknown, 03/16/23) Home Meds Active Scripts Erythromycin Base (Erythromycin) 5 Mg/Gram (0.5 %) Oint...g., 1 GM OP BID for 7 Days, #30 ML Prov:LIBORIO LINDSAY MD 08/18/23 Pantoprazole Sodium (Protonix) 40 Mg Ectab, 40 MG PO DAILY for 30 Days, #30 TAB.EC Prov:RONALDO PERSAUD MD 07/25/23 Ondansetron (Ondansetron Odt) 4 Mg Tab.rapdis, 4 MG PO Q6HPRN PRN for nausea, #12 TAB 0 Refills Prov:PETER RODRIGUEZ MD 03/16/23 Cephalexin (Cephalexin) 500 Mg Tablet, 500 MG PO TID for 5 Days, #15 TAB Prov:PETER RODRIGUEZ MD 03/16/23 Ciprofloxacin HCl/Dexameth (Ciproflox-Dexameth Otic Susp) 0.3 %-0.1 % Drops.susp, 3 DROP OT BID for 7 Days, #1 BOT both ears Prov:PETER RODRIGUEZ MD 03/16/23 Cetirizine HCl (Cetirizine HCl) 10 Mg Tablet, 10 MG PO HS, #5 TAB Prov:JUAN RAMON NAJERA V [facility] 02/10/23 Hydroxyzine HCl (Hydroxyzine HCl) 25 Mg Tablet, 25 MG PO TID PRN for ANXIETY/AGITATION, #9 TAB Prov:JUAN RAMON NAJERA V [facility] 02/10/23 Fluticasone Propionate (Flonase Nasal [place]) 50 Mcg/Actuation [place], 50 MCG NASAL DAILY PRN for NASAL CONGESTION for 10 Days, #1 SPRAY Prov:JUAN RAMON NAJERA V [facility] 02/10/23 Benzonatate (Benzonatate) 200 Mg Capsule, 200 MG PO TID PRN for COUGH for 14 Days, #42 CAP Prov:JUAN RAMON NAJERA V [facility] 02/10/23 Albuterol Sulfate (Proair Digihaler) 90 Mcg Aer.pw.bas, 90 MCG IH TID PRN for WHEEZING, #1 INHALER Prov:JUAN RAMON NAJERA V [facility] 02/10/23 Hydroxyzine Pamoate (Hydroxyzine Pamoate) 50 Mg Capsule, 50 MG PO QIDP PRN for ANXIETY/AGITATION, #60 CAP 2 Refills Prov:HIWOT JARVIS Sr., MD 12/14/22 Naproxen (Naproxen) 375 Mg Tablet., 375 MG PO BID PRN for PAIN for 10 Days, #20 TAB Prov:RONALDO PERSAUD MD 09/21/21 Cephalexin Monohydrate (Keflex) 500 Mg Cap, 500 MG PO TID for 7 Days, #28 CAP Prov:RONALDO PERSAUD MD 09/21/21 Cyclobenzaprine HCl (Flexeril) 10 Mg Tab, 10 MG PO TID PRN for MUSCLE SPASMS, #15 TAB Prov:JENNY BACH 06/12/21 Naproxen (Naproxen) 500 Mg Tablet., 500 MG PO BIDPC, #15 TAB Prov:JENNY BACH 06/12/21 Reported Medications Acetaminophen (Tylenol Extra Strength) 500 Mg Tablet, 500 MG PO AD, TAB 02/15/17 Past Medical History Past Medical History: No Pertinent History Additional Past Medical Hx: GASTRITIS Surgical History: Cholecystectomy, Social History: Negative LMP: Jan 27, 2024 RN Note Reviewed/Agreed w/PFSH: Yes Review of System Dictation All pertinent systems reviewed, negative except as documented in the HPI The ROS is obtained from patient GENERAL/CONSTITUTIONAL: Negative except as documented in HPI. ENT: Negative except as documented in HPI. CARDIOVASCULAR: Negative except as documented in HPI. RESPIRATORY: Negative except as documented in HPI. GASTROINTESTINAL: Negative except as documented in HPI. GENITOURINARY: Negative except as documented in HPI. MUSCULOSKELETAL: Negative except as documented in HPI. SKIN: Negative except as documented in HPI. NEUROLOGIC: Negative except as documented in HPI. Initial Vital Sign VS Vital Signs Date Time Temp Pulse Resp B/P (MAP) Pulse Ox O2 Delivery O2 Flow Rate FiO2 01/27/24 08:21 98.8 82 16 147/72 97 Room Air 0 01/27/24 08:47 21 Physical Exam Dictation VITAL SIGNS: note is made of triage vital signs CONSTITUTIONAL: This is a comfortable patient who is awake, alert, and appropriately interactive. HEAD: Normocephalic, Atraumatic. EYES: Periorbital areas with no swelling, redness, or edema. Lids and lashes are normal. Conjunctival injection is absent. Sclera anicteric. Pupils equal, round, reactive to light. ENT: No nasal discharge noted. Posterior pharynx is without exudate, redness, swelling, masses, or evidence of obstruction. Uvula midline. Mucous membranes moist. She has a hoarse voice and nasal quality to her speech which she states is chronic for her NECK: Trachea midline, no masses palpated, and no cervical lymphadenopathy. No swelling. Supple, full range of motion without nuchal rigidity. No vertebral point tenderness. No meningismus. CHEST/AXILLA: Normal chest wall appearance and motion. No tenderness. No crepitus. CV: Normal rate, regular rhythm. No murmur. No edema. RESPIRATORY:Respiratory rate is normal. Bilateral equal breath sounds with good airflow. Normal breath sounds are noted. No rales, rhonchi or wheezes noted. No increased work of breathing, no retractions. ABDOMEN: Inspection normal. No distention is appreciated. Bowel sounds are normal. No mass or organomegaly is appreciated. There is no tenderness. No rebound. No rigidity. No voluntary or involuntary guarding. BACK: Inspection is normal. No midline tenderness is appreciated. The patient appears comfortable when moving. : No CVA tenderness or bladder tenderness. SKIN: Warm, dry, with normal turgor. Capillary refill less than 3 seconds. Normal color.No rash. No cellulitis or abscess. No evidence of acute injury. MS/Extremity: There is no calf tenderness. Baseline range of motion is noted in all 4 extremities. There are no deformities. Careful palpation and inspection of the left forearm and wrist reveal no redness, swelling, area of significant point tenderness or limited range of motion. There is very slight pain over the volar surface of the wrist on deep palpation. Strong pulses and normal distal vascular exam and light touch are normal. NEURO: Awake and alert, lucid. Facies symmetric and speech is clear. Motor strength 5/5 in all extremities. Sensory grossly intact. PSYCH: Patient is appropriately attentive and cooperative without evidence of hallucination. Results (Laboratory/Radiology) Laboratory/Radiology Laboratory Tests Test 01/27/24 08:30 01/27/24 08:40 White Blood Count 8.4 K/uL (4.8-10.8) Red Blood Count 4.86 MIL/uL (4.00-5.50) Hemoglobin 12.3 g/dL (12.0-16.0) Hematocrit 38.8 % (36-48) Mean Corpuscular Volume 79.8 fL (79-99) Mean Corpuscular Hemoglobin 25.3 pg (27.0-33.0) L Mean Corpuscular Hemoglobin Concent 31.7 g/dL (32.0-36.0) L Red Cell Distribution Width 17.1 % (11.0-15.5) H Platelet Count 355 K/uL (130-400) Mean Platelet Volume 8.3 fL (7.5-10.5) Immature Granulocyte % (Auto) 0.4 % (0-1) Neutrophils (%) (Auto) 62.4 % (40.0-77.0) Lymphocytes (%) (Auto) 29.2 % (21.0-51.0) Monocytes (%) (Auto) 5.0 % (3.0-13.0) Eosinophils (%) (Auto) 2.6 % (0.0-8.0) Basophils (%) (Auto) 0.4 % (0.0-5.0) Neutrophils # (Auto) 5.3 K/uL (1.8-7.7) Lymphocytes # (Auto) 2.5 K/uL (1.0-4.8) Monocytes # (Auto) 0.4 K/uL (0.1-1.0) Eosinophils # (Auto) 0.22 K/uL (0.00-0.70) Basophils # (Auto) 0.03 K/uL (0.00-0.20) Absolute Immature Granulocyte (auto 0.03 K/uL (0-1) Nucleated Red Blood Cells 0.0 % (0.0-0.19) Sodium Level 139 mmol/L (136-145) Potassium Level 3.9 mmol/L (3.5-5.1) Chloride Level 105 mmol/L (101-111) Carbon Dioxide Level 27 mmol/L (21-32) Blood Urea Nitrogen 9 mg/dL (7-18) Creatinine 0.8 mg/dL (0.5-1.0) Glomerular Filtration Rate Calc 91 mL/min (>90) Random Glucose 113 mg/dL (70-105) H Total Calcium 8.8 mg/dL (8.5-10.1) Total Bilirubin 0.5 mg/dL (0.2-1.0) Aspartate Amino Transf (AST/SGOT) 15 U/L (10-37) Alanine Aminotransferase (ALT/SGPT) 25 U/L (12-78) Alkaline Phosphatase 81 U/L (50-136) Total Protein 7.1 g/dL (6.0-8.3) Albumin 3.5 g/dL (3.5-5.0) Lipase 47 U/L (16-77) Urine Color LIGHT-ORANGE (YELLOW) Urine Appearance CLOUDY (CLEAR) H Urine pH 6.5 (5.0-8.0) Urine Specific [place] 1.018 (1.001-1.031) Urine Protein 10 mg/dL (NEGATIVE) H Urine Glucose (UA) NEGATIVE mg/dL (NEGATIVE) Urine Ketones NEGATIVE mg/dL (NEGATIVE) Urine Occult Blood LARGE (NEGATIVE) H Urine Nitrate NEGATIVE (NEGATIVE) Urine Bilirubin NEGATIVE mg/dL (NEGATIVE) Urine Urobilinogen 0.2 mg/dL (0.2-1.0) Urine Leukocyte Esterase NEGATIVE Derek/uL Urine RBC TNTC /HPF (0-1) H Urine WBC 0-1 /HPF (0-1) Urine Squamous Epithelial Cells RARE /HPF (0-2) Urine Bacteria None /HPF (None Seen) Urine HCG, Qualitative NEGATIVE (NEGATIVE) Labs Reviewed?: Yes EKG Comment: Time reviewed: 8:42 a.m. EKG number; 1 Rate and rhythm: Atrial rhythm sinus versus ectopic with a normal rate [place]: Negative for Morphology: Low voltage in the precordial leads otherwise unremarkable OR interval: normal QT interval: normal ST/Twaves: normal Impression: No evidence of STEMI Comparison EKG: none EKG INTERPRETATION by Dr. Narcias Olson X-RAY Comment: The patient's for arm film is negative on my interpretation. Radiology reading is pending at the time of disposition ED Course ED Course Orders Procedure Category Date Status Time Cbc With Differential LAB 01/27/24 Complete 08:29 Comprehensive LAB 01/27/24 Complete Metabolic Panel 08:29 ,Urine Test LAB 01/27/24 Complete 08:29 Urinalysis Profile LAB 01/27/24 Complete 08:29 12 Lead Ekg Tracing- EKG 01/27/24 Logged Technical 08:29 Lactated Ringers PHA 01/27/24 Complete 1000ml (Lactated 08:30 Ondansetron 4mg Inj PHA 01/27/24 Complete (Zofran 4mg Inj) 08:30 Lipase LAB 01/27/24 Complete 08:29 Forearm 2vws Lt RAD 01/27/24 Logged 10:50 Current Medications Medications (Trade) Dose Ordered Sig/Oli Route PRN Reason Start Time Stop Time Status Last Admin Dose Admin Lactated Ringer's 1,000 ml @ 0 mls/hr ONCE ONCE IV 01/27/24 08:30 01/27/24 08:33 DC 01/27/24 08:44 Ondansetron HCl (zoFRAN 4MG INJ) 4 mg ONCE ONCE IVP 01/27/24 08:30 01/27/24 08:33 DC 01/27/24 08:44 Vital Signs Date Time Temp Pulse Resp B/P (MAP) Pulse Ox O2 Delivery O2 Flow Rate FiO2 01/27/24 08:47 98.8 64 18 139/76 97 Room Air* 0 21 01/27/24 08:21 98.8 82 16 147/72 97 Room Air 0 Medical Decision Making MDM INITIAL IMPRESSION Initial history and physical concerning for gastritis, tendinitis of the left forearm Patient did not experience any chest or abdominal pain and her EKG and abdominal exam are benign. Contributing medical problems: Gastritis for which she uses omeprazole I have reviewed the triage nursing notes and vital signs. The patient is afebrile with acceptable oxygen saturation, heart rate and blood pressure. Initial plan: Symptomatic therapy DATA REVIEW I have reviewed additional NN, repeat VS, and monitoring where indicated. Heart rate, blood pressure, and O2 saturation are acceptable. [place] diagnostic results: CBC, CMP and lipase are unremarkable. Beta hCG is negative. Urine does have red cells but she is on her menses I have reviewed for forearm film and did advise her that I would contact her if the radiology reading shows something unexpected. Other independent historian: none Review of external data: None. ED COURSE Interventions: The patient received Zofran and is feeling much better. Reassessment: Abdomen remains benign DISPOSITION Final diagnostic impression: Vomiting of uncertain etiology, tendinitis of the left forearm I discussed my findings, clinical impression and treatment recommendations with the patient. I have reviewed the social factors contributing to the patient's presentation and disposition planning. My final plan for disposition was made based upon clinical findings, response to treatment and discussion with the patient regarding management options. Hospitalization is not indicated due to low risk of short term progression, complication, morbidity or mortality related to the current diagnosis At the time of discharge, the vital signs are within acceptable limits. Repeat examination: Soft abdomen, alert patient The discharge treatment plan includes Zofran as needed for nausea, Voltaren and splinting for wrist pain I have have reviewed any perscription and/or OTC medications. Incidental findings discussed: none Questions were invited and answered in layman's terms. I have emphasized my follow-up recommendations and reviewed ED return precautions. I have answered any questions in layman's terms. The patient understands that they will have to arrange for out-patient follow-up for recheck of today's condition. The patient is stable and appropriate for discharge from the ED. This dictation was prepared using [employer] voice recognition software. Occasional voice recognition errors may occur. When identified, these errors have been corrected. While every attempt is made to correct errors during dictation, errors may still exist. DX & DISP Disposition: Discharge Decision to Admit Date: Jan 27, 2024 Decision to Admit Time: 11:18 Departure Impression: Primary Impression: Vomiting Additional Impression: Tendinitis of left forearm Condition: Stable Scripts Ondansetron (Ondansetron Odt) 4 Mg Tab.rapdis 4 MG SL TIDP PRN for NAUSEA, #30 TAB 0 Refills Prov: NARCISA OLSON MD 01/27/24 Additional Instructions: Please follow-up with your primary care provider within [1 to 2 days.] Take Zofran if needed for persistent nausea or vomiting. You may take [id number] Tylenol as needed for pain or fever. Return to the emergency department for fever, nausea, persistent vomiting or diarrhea, chest pain, or shortness of breath. Clear liquids over the next 12 hours, then you may progress to bananas, rice, applesauce, and toast. After that you may proceed to a normal diet. Avoid spicy, greasy, and fatty foods. Avoid any foods you know can cause you symptoms. For the wrist pain use a splint part of the time each day and apply Voltaren three or 4 times a day over the affected area for about two weeks. Referrals: BEVERLEY KHANNA (PCP) Time of Disposition: 11:20 NARCISA OLSON MD Jan 27, 2024 10:06
[2024-01-27] MEDS ORDERED: ONDA-243 SL (11:19)
--- NOTE | 2024-01-27 11:27 | HMCIMG ---
LEFT FOREARM RADIOGRAPHS - 2 VIEWS INDICATION: Pain COMPARISON: None FINDINGS: AP and lateral views. No fracture or dislocation identified. No radiopaque foreign body noted. IMPRESSION: No evidence for fracture or dislocation.
[2024-01-27 11:42] VITALS: BP 128/67; PULSE 68; RESP 18; TEMP 98.8; O2SAT 99
--- NOTE | 2024-01-28 17:18 | EKG ---
[facility] Test Date: 2024-01-27 Test Time: 08:34:25 Pat Name: RYAN WILLIAM Department: [facility] Room: Gender: F Core Analyst: [id number] : 1975 Requested By: NARCISA OLSON Order Number: [id number] Reading MD: Thaddeus Bullard Measurements Intervals [place] Rate: 83 P: -51 NE: 130 QRS: -4 QRSD: 88 T: 7 QT: 390 QTc: 460 Interpretive Statements Ectopic atrial rhythm Low voltage, precordial leads Compared to ECG 10/11/2023 22:18:51 Ectopic atrial rhythm now present Low QRS voltage now present Sinus rhythm no longer present Myocardial infarct finding no longer present Electronically Signed On 01-28-2024 17:41:03 MARGARINE MAKER by Thaddeus Bullard Please click the below link to view image of tracing.
== END 2024-01-27 12:09 | disposition home or self-care (01) ==
LOC: EDH 08:17
DX: R11.2 Nausea with vomiting, unspecified (principal); M77.8 Other enthesopathies, not elsewhere classified; Z79.899 Other long term (current) drug therapy; Z88.5 Allergy status to narcotic agent; Z90.49 Acquired absence of other specified parts of digestive tract
CPT/HCPCS: 99285; 96374; 96361; 80053; 83690; 85025; 81001; 81025; 36415; 73090; 29125; 93005; J7120; J2405